=== PATIENT | female | born 1965 | race Caucasian/White ===

== ENCOUNTER 2016-12-28 16:38 | Observation (INO) | payer BC ==
[~2016-12-28] VITALS: Ht 167.6 cm; Wt 100.0 kg
[2016-12-28] MEDS ORDERED: LIPITOR10 M1 PO (16:50)
[2016-12-28 17:32] LABS: HEMATOCRIT 37.9 % (37.0-47.0); HEMOGLOBIN 12.9 g/dl (12.0-16.0); IMMATURE GRANULOCYTES 0.3 % (0.0-1.0); MEAN CELL VOLUME 92.7 fL CALC (80.0-100.0); MEAN CORPUSCULAR HGB 31.5 pG CALC (26.0-32.0); NEUT# 9.32 thou/uL (2.00-7.15); RED BLOOD COUNT 4.09 mill/uL (4.20-5.60); RED CELL DISTRI WIDTH 12.2 % (11.5-15.5)
[2016-12-28 17:33] LABS: URINE BILIRUBIN - DIPSTICK NEGATIVE (NEGATIVE); URINE BLOOD DIPSTICK MODERATE (NEGATIVE); URINE CLARITY CLEAR; URINE COLOR YELLOW; URINE GLUCOSE - DIPSTICK NEGATIVE (NEGATIVE); URINE KETONE NEGATIVE (NEGATIVE); URINE LEUK ESTERASE NEGATIVE (NEGATIVE); URINE NITRITE - DIPSTICK NEGATIVE (Negative); URINE PH 5.5 (4.5-8.0); URINE PROTEIN - DIPSTICK 30 mg/dL (NEG-TRACE); URINE SPECIFIC GRAVITY >=1.030; URINE UROBILINOGEN - DIPSTICK 0.2 E.U./dL (0.2)
[2016-12-28 17:40] LABS: URINE SQUAMOUS EPITHELIAL CELL FEW EPI/hpf (0-FEW)
[2016-12-28 17:46] LABS: ALBUMIN 4.1 g/dL (3.2-5.0); ALKALINE PHOSPHATASE 52 u/l (38-126); AMYLASE 36 u/l (30-110); ANION GAP 15 (6-22 (CALC)); BILIRUBIN, TOTAL 0.6 mg/dL (0.0-1.4); BUN 12 mg/dL (7-17); BUN/CREATININE RATIO 18 (12-20 (CALC)); CALCIUM 8.4 mg/dL (8.4-10.2); CARBON DIOXIDE 23 mmol/l (22-30); CHLORIDE 104 mmol/l (95-108); CREATININE 0.7 mg/dL (0.5-1.0); GFR > 60 ML/MIN (>=60 (CALC)); GFR FOR AFR.AMER. > 60 ML/MIN (>=60 (CALC)); GLUCOSE 124 mg/dL (65-105); LIPASE 76 u/l (23-300); POTASSIUM 3.5 mmol/l (3.5-5.1); SGOT/AST 17 u/l (14-36); SGPT/ALT 29 u/l (9-52); SODIUM 139 mmol/l (137-146); TOTAL PROTEIN 7.4 g/dL (6.3-8.2)
[2016-12-28 17:58] LABS: MYOGLOBIN 29 ng/mL (0 - 62)
[2016-12-28 21:56] VITALS: BP 176/89
[2016-12-29 06:43] LABS: HEMATOCRIT 33.1 % (37.0-47.0); HEMOGLOBIN 11.1 g/dl (12.0-16.0); IMMATURE GRANULOCYTES 0.4 % (0.0-1.0); MEAN CELL VOLUME 94.3 fL CALC (80.0-100.0); MEAN CORPUSCULAR HGB 31.6 pG CALC (26.0-32.0); MEAN CORPUSCULAR HGB CONC 33.5 g/L CALC (32.0-36.0); NEUT# 3.72 thou/uL (2.00-7.15); RED BLOOD COUNT 3.51 mill/uL (4.20-5.60); RED CELL DISTRI WIDTH 12.3 % (11.5-15.5)
[2016-12-29 07:07] LABS: ANION GAP 13 (6-22 (CALC)); BUN 9 mg/dL (7-17); BUN/CREATININE RATIO 14 (12-20 (CALC)); CALCIUM 7.8 mg/dL (8.4-10.2); CARBON DIOXIDE 27 mmol/l (22-30); CHLORIDE 106 mmol/l (95-108); CREATININE 0.7 mg/dL (0.5-1.0); GFR > 60 ML/MIN (>=60 (CALC)); GFR FOR AFR.AMER. > 60 ML/MIN (>=60 (CALC)); GLUCOSE 96 mg/dL (65-105); POTASSIUM 3.5 mmol/l (3.5-5.1); SODIUM 142 mmol/l (137-146)
[2016-12-29 07:15] VITALS: BP 140/63
[2016-12-29 12:00] VITALS: BP 139/68
[2016-12-29] MEDS ORDERED: SUCRALFATE1 GM/10 ML PO (13:38)
[2016-12-29] MEDS ORDERED: PANTOPRAZOLE SO40 M1 PO (13:38)
== END 2016-12-29 15:00 | disposition home or self-care (01) | DRG 392 ==
LOC: ED 16:38 → ED-I 20:20 → ED 20:34 → ICU 20:35
PROVIDERS: Emergency Medicine; Internal Medicine; ADMIT Internal Medicine; ATTEND Internal Medicine
DX: K29.70 Gastritis, unspecified, without bleeding (principal); I10 Essential (primary) hypertension; K52.9 Noninfective gastroenteritis and colitis, unspecified; E03.9 Hypothyroidism, unspecified; E78.5 Hyperlipidemia, unspecified; K21.9 Gastro-esophageal reflux disease without esophagitis; Z87.891 Personal history of nicotine dependence
CPT/HCPCS: Q9967

== ENCOUNTER 2017-09-28 14:20 | Emergency (ER) | payer BC ==
[~2017-09-28] VITALS: Ht 167.6 cm; Wt 97.7 kg
[~2017-09-28 14:20] MED LIST: LIPITOR10 M1 PO; PANTOPRAZOLE SO40 M1 PO; SUCRALFATE1 GM/10 ML PO
[2017-09-28 14:51] VITALS: BP 161/79
[2017-09-28] MEDS ORDERED: LEVOTHYROXIN50 MCG PO (14:53)
[2017-09-28] MEDS ORDERED: UNKNOWN BP MED PO (14:54)
[2017-09-28] MEDS ORDERED: TORADOL PO (15:47)
[2017-09-28] MEDS ORDERED: MEDDOSEPAK PO (15:47)
[2017-09-28] MEDS ORDERED: VALTREX1 GM PO (15:47)
== END 2017-09-28 16:00 | disposition home or self-care (01) | DRG 552 ==
LOC: ED 14:20
DX: M54.6 Pain in thoracic spine (principal); M47.814 Spondylosis without myelopathy or radiculopathy, thoracic region

== ENCOUNTER 2021-11-24 07:35 | Observation (INO) | payer BC ==
[2021-11-24] VITALS (14 sets, daily range): BP systolic 136–155; BP diastolic 71–87
[~2021-11-24] VITALS: Ht 167.6 cm; Wt 99.8 kg
[~2021-11-24 07:35] MED LIST changes: +LEVOTHYROXIN50 MCG PO; +MEDDOSEPAK PO; +TORADOL PO; +UNKNOWN BP MED PO; +VALTREX1 GM PO
--- NOTE | 2021-11-24 07:35 | NUR ---
PT TO ROOM VIA WC
[2021-11-24 08:28] LABS: IMMATURE GRANULOCYTES 0.1 % (0.0-5.0); MEAN CELL VOLUME 94.7 fL CALC (80.0-100.0); MEAN CORPUSCULAR HGB 31.3 pG CALC (26.0-32.0); MEAN CORPUSCULAR HGB CONC 33.1 g/dL CAL (32.0-36.0); NEUT# 15.32 thou/uL (2.00-7.15); RED BLOOD COUNT 4.34 mill/uL (4.20-5.60)
[2021-11-24 08:29] LABS: HEMATOCRIT 41.1 % (37.0-47.0); HEMOGLOBIN 13.6 g/dl (12.0-16.0)
--- NOTE | 2021-11-24 08:35 | NUR ---
Reassessment of patient completed. No distress noted.
[2021-11-24 08:46] LABS: ALBUMIN 4.6 g/dL (3.2-5.0); ANION GAP 12 (6-22 (CALC)); BILIRUBIN, TOTAL 0.4 mg/dL (0.0-1.4); BUN 19 mg/dL (7-17); BUN/CREATININE RATIO 27 (12-20 (CALC)); CARBON DIOXIDE 29 mmol/l (22-30); CHLORIDE 102 mmol/l (95-108); CREATININE 0.7 mg/dL (0.5-1.0); GFR FOR AFR.AMER. > 60 ML/MIN (>=60 (CALC)); GFR OTHER RACES > 60 ML/MIN (>=60 (CALC)); LIPASE 132 u/l (23-300); POTASSIUM 3.8 mmol/l (3.5-5.1); SGOT/AST 25 u/l (14-36); SODIUM 139 mmol/l (137-146); TOTAL PROTEIN 8.2 g/dL (6.3-8.2)
[2021-11-24 08:47] LABS: ALKALINE PHOSPHATASE 98 u/l (38-126)
--- NOTE | 2021-11-24 09:23 | NUR ---
Reassessment of patient completed. No distress noted.
--- NOTE | 2021-11-24 10:00 | NUR ---
PATIENT IN NO ACUTE DISTESS FLUIDS AND ABD RUNNING. REPORT GIVEN BY RN. LOUIE. CALL LIGHT WITHIN REACH.
[2021-11-24 10:08] LABS: URINE BILIRUBIN - DIPSTICK NEGATIVE (NEGATIVE); URINE BLOOD DIPSTICK MODERATE (NEGATIVE); URINE COLOR YELLOW; URINE GLUCOSE - DIPSTICK NEGATIVE (NEGATIVE); URINE KETONE NEGATIVE (NEGATIVE); URINE LEUK ESTERASE NEGATIVE (NEGATIVE); URINE PROTEIN - DIPSTICK NEGATIVE (NEG-TRACE); URINE SPECIFIC GRAVITY 1.025; URINE UROBILINOGEN - DIPSTICK 0.2 E.U./dL (0.2)
[2021-11-24 10:19] LABS: URINE NITRITE - DIPSTICK NEGATIVE (Negative); URINE SQUAMOUS EPITHELIAL CELL FEW EPI/hpf (0-FEW)
--- NOTE | 2021-11-24 11:00 | NUR ---
Reassessment of patient completed. No distress noted. ABD COMPLETED. PATIENT TOLIETED.
--- NOTE | 2021-11-24 12:00 | NUR ---
Reassessment of patient completed. No distress noted.
--- NOTE | 2021-11-24 12:40 | NUR ---
PT ARRIVED VIA WC WITH ELECTRICIAN MANAGER. BED SIDE REPORT RECIEVED. IV RAC 18G, FLUSHED. CONNECTED TO IVF PER EMAR. ASSESSMENT ADMISSION. PT A&O X3. ABLE TO AMBULATE STANDY BY ASSIST FROM WC TO BED. STATES NO NAUSEA/ VOMITING. ABD TENDERNESS IN RIGHT AND LEFT UPPER QUADRANT. PT ABLE TO MOVE ALL EXTEREMETIES. RADIAL/PEDAL STRONG BILATERALLY. BOWEL SOUNDS ACTIVE X4. FALL/SAFTEY PRECAUTION IN PLACE. CALL LIGHT WITHIN REACH. ALLERGY/ FALL RISK BAND APPLIED.
[2021-11-24] MEDS ORDERED: LEVOTHYROXIN75 MCG PO (12:46)
--- NOTE | 2021-11-24 12:53 | NUR ---
PT BROUGHT OT MED SURG AT THIS TIME. REPORT GIVEN AT BEDSIDE TO WILLIAN VILLARREAL
--- NOTE | 2021-11-24 16:03 | NUR ---
PT RESTING WITH FAMILY MEMBERS AT BEDSIDE. STATES NO NEEDS AT THIS TIME. BREATHING EVEN AND UNLABORED. FALL/SAFTEY PRECAUTION IN PLACE. CALL LIGHT WITHIN REACH.
--- NOTE | 2021-11-24 20:00 | NUR ---
PHYSICAL ASSESMENT COMPLETE. PT CURRENTLY COMPLAINS OF UPPER ABDOMINAL PAIN AND DISCOMFORT. DR TALAVERA HAS BEEN CONSULTED. SCHEDULED MEDICATIONS AND PRN MEDICATION ADMINISTERED, SEE E-MAR. PT DENIES ANY NEEDS AT THIS TIME. PLAN OF CARE REVIEWED, PT DENIES QUESTIONS, VERBALIZES UNDERSTANDING. ITEMS WITHIN REACH, BED LOCKED IN LOW POSITION W/ BEDRAILS UP X2. CALL SHAW WITHIN REACH, AGREES TO CALL PRN.
--- NOTE | 2021-11-25 | NUR ---
PT LAYING IN BED WITH EYES CLOSED, APPEARS TO BE SLEEPING, APPEARS COMFORTABLE AND IN NO DISTRESS. RESPIRATIONS REGULAR AND UNLABORED. ITEMS REMAIN WITHIN REACH, CALL SHAW REMAINS WITHIN REACH. BED REMAINS LOCKED AND IN LOW POSITION WITH BEDRAILS UP X2.
[2021-11-25 04:07] VITALS: BP 152/76
[2021-11-25 06:06] VITALS: BP 162/90
--- NOTE | 2021-11-25 07:00 | NUR ---
RECEIVE REPORT FROM FRANKLIN DOMINGUEZ.
[2021-11-25 08:01] LABS: MEAN CELL VOLUME 96.6 fL CALC (80.0-100.0); MEAN CORPUSCULAR HGB CONC 33.1 g/dL CAL (32.0-36.0); RED BLOOD COUNT 3.5 mill/uL (4.20-5.60); RED CELL DISTRI WIDTH 12.3 % (11.5-15.5)
[2021-11-25 08:02] LABS: HEMATOCRIT 33.8 % (37.0-47.0); HEMOGLOBIN 11.2 g/dl (12.0-16.0)
--- NOTE | 2021-11-25 08:27 | NUR ---
PATIENT ALERT AND ORIENTED X3. RESTING PLEASNAT IN BED. PATIENT IS EDUCATED ABOUD MEDICATIONS AND NURSING PLAN FOR TODAY. PT REFER UNDERSTAND. SAFETY AND FALL PRECAUTIONS IN PLACE. CALL LIGHT WITHIN REACH.
[2021-11-25 08:37] LABS: ALKALINE PHOSPHATASE 67 u/l (38-126); ANION GAP 7 (6-22 (CALC)); BILIRUBIN, TOTAL 0.3 mg/dL (0.0-1.4); BUN 13 mg/dL (7-17); BUN/CREATININE RATIO 20 (12-20 (CALC)); CARBON DIOXIDE 27 mmol/l (22-30); CHLORIDE 109 mmol/l (95-108); CREATININE 0.6 mg/dL (0.5-1.0); GFR FOR AFR.AMER. > 60 ML/MIN (>=60 (CALC)); GFR OTHER RACES > 60 ML/MIN (>=60 (CALC)); POTASSIUM 4.2 mmol/l (3.5-5.1); SGOT/AST 24 u/l (14-36); SODIUM 140 mmol/l (137-146)
[2021-11-25 08:46] LABS: ALBUMIN 3.5 g/dL (3.2-5.0); TOTAL PROTEIN 6.2 g/dL (6.3-8.2)
[2021-11-25 11:09] VITALS: BP 152/85
--- NOTE | 2021-11-25 11:45 | NUR ---
PATIENT STABLE AT THIS TIME RESTING IN BED. SAFETY AND FALL PRCAUTIONS IN PLACE. CALL LIGHT WITHIN REACH.
[2021-11-25] MEDS ORDERED: PANTOPRAZOLE SO40 M1 PO (11:49)
--- NOTE | 2021-11-25 12:55 | NUR ---
PATIENT IS DISCHARGE STABL. PT IS EDUCATED ABOUD MEDICATIONS AT HOME AND FOLLOW UP. PT REFER UNDERSTAND.
== END 2021-11-25 13:30 | disposition home or self-care (01) | DRG 392 ==
LOC: ED 07:35 → ED-I 10:50 → ED 11:14 → MS2 11:15
PROVIDERS: Internal Medicine; ADMIT Internal Medicine; ATTEND Internal Medicine
DX: K29.70 Gastritis, unspecified, without bleeding (principal); E87.2 Acidosis; D72.829 Elevated white blood cell count, unspecified; I10 Essential (primary) hypertension; E03.9 Hypothyroidism, unspecified; E78.5 Hyperlipidemia, unspecified; K21.9 Gastro-esophageal reflux disease without esophagitis; F43.21 Adjustment disorder with depressed mood; Z63.4 Disappearance and death of family member; Z63.8 Other specified problems related to primary support group; Z20.822 Contact with and (suspected) exposure to COVID-19
CPT/HCPCS: G0378; J0692; J1650; S0164